=== PATIENT | female | born 1940 | race Caucasian/White ===

== ENCOUNTER → 2022-02-23 10:00 | Outpatient (BNVA) | payer MEDICARE, SELFPAY | PROVIDERS: Visit Provider Emergency Medicine | DX: I10 Essential (primary) hypertension (principal) | CPT/HCPCS: 80053; 85025 ==

== ENCOUNTER → 2022-10-10 09:43 | Outpatient (BNVA) | payer MEDICARE, SELFPAY | PROVIDERS: Visit Provider Family Medicine | DX: I10 Essential (primary) hypertension (principal) | CPT/HCPCS: 80053; 80061 ==

== ENCOUNTER → 2022-10-22 11:17 | Outpatient (BNVA) | payer MEDICARE, SELFPAY | PROVIDERS: Visit Provider Family Medicine | DX: I10 Essential (primary) hypertension (principal); Z13.220 Encounter for screening for lipoid disorders; Z13.6 Encounter for screening for cardiovascular disorders | CPT/HCPCS: 80053; 80061 ==

== ENCOUNTER → 2022-11-23 10:15 | Outpatient (BNVA) | payer MEDICARE, SELFPAY | PROVIDERS: Visit Provider Nurse Practitioner Family | DX: M25.519 Pain in unspecified shoulder (principal); M25.619 Stiffness of unspecified shoulder, not elsewhere classified; M19.012 Primary osteoarthritis, left shoulder | CPT/HCPCS: 73030 ==

== ENCOUNTER → 2023-11-28 14:19 | Outpatient (BNVA) | payer MEDICARE, SELFPAY | PROVIDERS: PCP Family Medicine; Visit Provider Physician Assistant | DX: M79.641 Pain in right hand (principal); R22.31 Localized swelling, mass and lump, right upper limb | CPT/HCPCS: 73130; 99204 ==

== ENCOUNTER 2024-01-08 06:42 | Day surgery (SDC) | payer MEDICARE, SELFPAY ==
[2024-01-08] VITALS (8 sets, daily range): BP systolic 117–162; BP diastolic 66–88; PULSE 46–54; RESP 16–18; TEMP 36.1–36.3; O2SAT 93–96
[2024-01-08] MEDS: sodium chloride 0.9% 1,000 ML 30 ML IV (07:16)
[2024-01-08] MEDS: acetaminophen 1,000 MG/100 ML PIGGYBACK 400 MG IV (07:18)
[2024-01-08] MEDS: ketorolac 30 mg/mL INJ IVP (07:18)
[2024-01-08] MEDS: scopolamine 1.5 Patch 1 PATCH TRANSDERMA (07:23)
--- NOTE | 2024-01-08 07:54 | W.PM.OPSFHP ---
Same Day Surgery H&P Indication for Procedure/HPI DATE OF PROCEDURE: January 08, 2024 CHIEF COMPLAINT/INDICATIONFOR SURGICAL PROCEDURE: Right ring finger cyst, right small finger cyst PREOP DIAGNOSIS: Right ring finger cyst, right small finger cyst PLANNED PROCEDURE: Operation Date: 01/08/24 08:25 Proposed Procedures p Right ring finger cyst excision and right small finger cyst excision(Right) - Kranthi Page DO Medications/Allergies* Home Medications Medication Instructions Recorded Confirmed Type omeprazole 20 mg tablet,delayed 20 mg PO DAILY 07/01/23 01/07/24 History release Allergies/Adverse Reactions Allergy/AdvReac Type Severity Reaction Status Date / Time No Known Allergies Allergy Verified 11/28/23 14:25 Current Medications: Generic Name Dose Route Start Last Admin Trade Name Freq PRN Reason Stop Dose Admin Sodium Chloride 1,000 mls @ 30 mls/hr 01/08/24 07:00 01/08/24 07:16 Sodium Chloride 0.9% IV 01/09/24 06:59 30 mls/hr .Q24H FAY Administration Pertinent History/Comorbid Conditions* Medical History (Updated 12/02/23 @ 11:33 by NAKIA Tolentino) DJD of left shoulder History of TIA (transient ischemic attack) 2020 HTN (hypertension) with goal to be determined Metoprolol DC due to symptomatic mild bradycardia Surgical History (Updated 04/10/22 @ 15:46 by Faye Torres MD) History of hysterectomy History of cholecystectomy Family History (Updated 04/10/22 @ 14:31 by Kadie Soria LPN) Hypertension Father Mother Sister Stroke Mother Sister Denies family history of Diabetes Clotting disorder Dementia Hyperlipidemia Chronic kidney disease (CKD) Bleeding disorder Cancer Thyroid disease Pertinent Exam Findings alert, oriented x 3, operative site marked and procedure specific exam findings Please refer to detailed orthopedic examination on 11/28/2023: Right hand?palpable soft and mildly tender and mobile fluid-filled cyst on little finger and ring finger around PIP joint. Pain with range of motion in fingers. Radial pulse 2+. Recommendations Surgery/Procedure today Other Plans: Plan to proceed to the OR today for right ring finger cyst excision and right little finger cyst excision. Patient understands and Zetts procedure risk benefits complication alternatives of surgery and through shared decision-making elects proceed with surgical intervention. All questions answered at this time. Coding Level of Care Code Acute Code for Chg Fwd
--- NOTE | 2024-01-08 08:14 | ANES.PREANE2 ---
Pre-Anesthetic Assessment Height/Weight: Height 1.65 m Weight 83.915 kg Temp Pulse Resp BP Pulse Ox O2 Del Method 97.1 F L 54 L 17 162/88 96 Room Air 01/08/24 07:02 01/08/24 07:02 01/08/24 07:02 01/08/24 07:02 01/08/24 07:02 01/08/24 07:02 Preop Diagnosis: Right ring finger cyst, right small finger cyst Operation Date: 01/08/24 08:25 Proposed Procedures p Right ring finger cyst excision and right small finger cyst excision(Right) - Kranthi Page DO Familial anesthetic complications: none Was Beta Johnnie taken within 24 hours: N/A Was Clonidine taken within 24 hours: N/A Last intake: Intake Last Liquid Date 01/07/24 Last Liquid Time 20:30 Last Solid Date 01/07/24 Last Solid Time 20:30 Social No alcohol and No tobacco Exam alert, oriented x 3, clear to auscultation bilaterally and regular rate & rhythm Airway Submandibular: within normal limits Cervical ROM: within normal limits Mallampati: Class II Dentition: full History/ROS No significant history except as noted and No significant complaints Pulmonary None reported CV/HEM Hypertension None reported Hepatic None reported GI Gastroesophageal Reflux Disease Metabolic None reported Musc/skel None reported Neuropsych Cerebrovascular Accident no deficit Anesthetic Plan ASA status: 2 Anesthesia: MAC Risk of > 500 ml blood loss (7ml/kg in children): No Medications/Allergies Home Medications Medication Instructions Recorded Confirmed Last Taken Type diclofenac sodium 1 % topical gel 4 g topical QID #100 grams 11/23/22 01/07/24 Unknown Rx (Voltaren Arthritis Pain) nystatin 100,000 unit/gram topical 1 applic topical BID #30 grams 05/13/23 01/07/24 01/07/24 Rx cream clopidogrel 75 mg tablet (Plavix) 75 mg PO DAILY 90 days #90 tabs 07/01/23 01/07/24 01/01/24 Rx omeprazole 20 mg tablet,delayed 20 mg PO DAILY 07/01/23 01/07/24 01/07/24 History release amlodipine 10 mg tablet 10 mg PO DAILY 90 days #90 tabs 09/24/23 01/07/24 Unknown Rx losartan 50 mg tablet 50 mg PO DAILY 90 days #90 tabs 09/24/23 01/07/2424 Rx Allergies Allergy/AdvReac Type Severity Reaction Status Date / Time No Known Allergies Allergy Verified 11/28/23 14:25 Current Medications Generic Name Dose Route Start Last Admin Trade Name Chelo PRN Reason Stop Dose Admin Sodium Chloride 1,000 mls @ 30 mls/hr 01/08/24 07:00 01/08/24 07:16 Sodium Chloride 0.9% IV 01/09/24 06:59 30 mls/hr .Q24H FAY Administration PFSH Anesthesia Medical History DJD of left shoulder History of TIA (transient ischemic attack) 2020 HTN (hypertension) with goal to be determined Metoprolol DC due to symptomatic mild bradycardia Surgical History History of hysterectomy History of cholecystectomy Family History Father Hypertension Mother Hypertension Stroke Sister Hypertension Stroke Denies family history of Diabetes Clotting disorder Dementia Hyperlipidemia Chronic kidney disease (CKD) Bleeding disorder Cancer Thyroid disease Female Reproductive History Para: 4 Spontaneous abortions: No Data Anesthesia Cardiac Studies: No Data to Display
[2024-01-08] MEDS: ceFAZolin 2,000 MG in sodium chloride 0.9% (plus) 50 ML 100 MG IV (08:22)
[2024-01-08] MEDS: lidocaine 2% INJ 20 mL INJECTION (08:46)
[2024-01-08] MEDS: ROPivacaine 0.5% SDV 30 mL 150 MG INJECTION (08:47)
--- NOTE | 2024-01-08 09:09 | P.BOP_ITS ---
Date of Procedure: 01/08/2024 Surgeon: Kranthi Page DO Greeting Card Maker(s): None Procedure(s) performed: Right ring finger PIP cyst excision and bony dorsal osteophyte ostectomy Right small finger PIP cyst excision and bony dorsal osteophyte ostectomy Findings of the procedure(s): Patient was found to have PIP cysts of the right ring and small finger with prominent dorsal osteophytes these were subsequently excised and osteophytes removed and smoothed out with a rasp without issues or complications. 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
--- NOTE | 2024-01-08 09:11 | PM.OP ---
Operative Report Date of procedure: January 08, 2024 Surgeon: Kranthi Page DO Procedure: Preoperative diagnosis: Right ring finger and right small finger PIP joint cysts as well as arthritis Post-op diagnosis: Same Procedure done: Right ring finger PIP cyst excision and bony dorsal osteophyte ostectomy Right small finger PIP cyst excision and bony dorsal osteophyte ostectomy Surgeon: Kranthi Page DO Estimated blood loss: 2 mL Tourniquet time 35 minutes IV fluids: 600 mL Complications: None Findings: See operative report narrative Condition: stable Disposition: same day Brief History: Patient presents to the outpatient setting with findings consistent with a right Ring?and small finger??cyst with arthritis and dorsal prominent osteophytes.? She has been worked up in the outpatient setting and is failed conservative treatment approach.? Patient has right Ring and small?finger?noticeable ?cyst?that appears to be associated with DIP arthritis with dorsal osteophyte prominence.? Patient's failed conservative treatment and? She wishes to proceed with surgical intervention.? We talked about the risk benefits complications and alternatives with surgical nonsurgical treatment options.? Understanding risk of surgery she agrees to proceed with a right Ring?and small finger PIP joint cyst excision and possible bony ostectomies.? All questions answered. Procedure: Patient was seen evaluated in the preoperative holding area.? Consent was reviewed and signed with patient.? Correct extremity was then marked.? Patient was then seen and evaluated by the anesthesia department once cleared for surgery patient was then taken back to the operative suite patient was placed in supine position and all bony prominences well-padded the patient was properly secured to the bed.? Armboard was applied to the right upper extremity. This point time the right upper extremity was then prepped and draped in standard orthopedic fashion.? A final timeout was performed.? Patient received appropriate preoperative antibiotics. Prior to proceeding with incision sites I then performed digital block of the right Ring?and small finger?under sterile aseptic technique Finger?turnicot was used over the right Ring?finger?to exsanguinate the digit. ? Right Ring?finger?was then identified as well as the?cyst?over the PIP joint on the midline aspect of the?finger.? I then subsequently made a curved incision over the right ring finger over the PIP joint sharp scalpel was made through skin only I then utilized Littler dissection scissors and dissected out patient's dorsal ganglion cyst. This was dissected through Littler dissection scissors to its entirety and subsequently excised the cyst at the stalk utilizing bipolar electrocautery burring this at the base and its communication to the PIP joint. This was sent for pathology. It was of note patient did have significant arthritic changes with prominent dorsal osteophytes that were tenting the extensor mechanism I mobilized the extensor mechanism and took this ulnarly and then subsequently utilized a rongeur to remove any dorsal osteophyte prominences with bony ostectomy as well as a rasp to smooth out the edges. Then thoroughly irrigation was then subsequently performed and then I utilized a simple Monocryl stitch to close the capsule deep. Thorough irrigation performed and then I proceeded with removal of the cyst to the right small finger. Finger turnicot removed to the right ring finger. Finger turnicot was placed to the right small finger. Right small?finger?was then identified as well as the?cyst?over the PIP joint on the midline aspect of the?finger.? I then subsequently made a curved incision over the right small finger over the PIP joint sharp scalpel was made through skin only I then utilized Littler dissection scissors and dissected out patient's dorsal ganglion cyst. This was dissected through Littler dissection scissors to its entirety and subsequently excised the cyst at the stalk utilizing bipolar electrocautery burring this at the base and its communication to the PIP joint. This was sent for pathology. It was of note patient did have significant arthritic changes with prominent dorsal osteophytes that were tenting the extensor mechanism I mobilized the extensor mechanism and took this ulnarly and then subsequently utilized a rongeur to remove any dorsal osteophyte prominences with bony ostectomy as well as a rasp to smooth out the edges. Then thoroughly irrigation was then subsequently performed and then I utilized a simple Monocryl stitch to close the capsule deep. Thorough irrigation performed to both digits. Next I then removed?finger?turnicot. Total of 35 minutes between both finger turnicot's. Wound bed was then thoroughly irrigated hemostasis was maintained with bipolar electrocautery.? Next I closed the incision with interrupted nylon suture.? Incision sites were then dressed with Xeroform 4 x 4's Kerlix Isak wrap and an Darci wrap.? Patient was then awakened from anesthesia and taken to PACU in stable condition. Disposition: Patient taken to PACU in stable condition recovering well.? Dressing on in place clean dry and intact.? Patient was receive appropriate discharge instruction as well as pain medication postoperatively.? Patient may be allowed weightbearing as tolerated to the right hand and encourage range of motion once dressing come down after 72 hours.? Patient to follow-up with me in the office in 2 weeks.? Patient understands and agrees with current plan.? All questions answered.
[2024-01-08] MEDS: TRAMadol 50 mg Tablet PO (10:05)
--- NOTE | 2024-01-08 10:25 | ANE.PACU2 ---
Inpatient post-anesthesia follow up: Airway intact: Yes Vital signs: Temperature 97.4 F Pulse Rate 52 Respiratory Rate 16 Blood Pressure 155/66 Pulse Oximetry 95 Oxygen Delivery Me thod Room Air Oxygen Flow Rate Fraction of Inspir ed Oxygen Hydration adequate: Yes Nausea and vomiting: No Pain level: 1 Mental status: Baseline
== END 2024-01-08 10:25 | disposition home or self-care (01) ==
PROVIDERS: PCP Family Medicine; Visit Provider Student in an Organized Health Care Education/Training Program
PROC: (CPT 26160; principal; 2024-01-08 08:25)
DX: M67.441 Ganglion, right hand (principal); M13.841 Other specified arthritis, right hand; Z86.73 Personal history of transient ischemic attack (TIA), and cerebral infarction without residual deficits; I10 Essential (primary) hypertension
CPT/HCPCS: 26160 ×2; 88304; J0131; J0690; J1885; J2704; J2795; J3010; J7030

== ENCOUNTER → 2024-01-27 08:49 | Outpatient (BNVA) | payer MEDICARE, SELFPAY | PROVIDERS: PCP Family Medicine; Visit Provider Physician Assistant | DX: Z98.890 Other specified postprocedural states (principal) | CPT/HCPCS: 99024 ==

== ENCOUNTER → 2024-04-02 10:48 | Outpatient (BNVA) | payer MEDICARE, SELFPAY | PROVIDERS: PCP Family Medicine; Visit Provider Family Medicine | DX: I10 Essential (primary) hypertension (principal); R53.83 Other fatigue | CPT/HCPCS: 80053; 80061; 84443; 85025 ==

== ENCOUNTER → 2024-04-15 10:04 | Outpatient (BNVA) | payer MEDICARE, SELFPAY | PROVIDERS: PCP Family Medicine; Visit Provider Physician Assistant | DX: Z98.890 Other specified postprocedural states (principal) | CPT/HCPCS: 99024 ==

== ENCOUNTER → 2024-09-24 10:59 | Outpatient (BNVA) | payer MEDICARE, SELFPAY | PROVIDERS: PCP Family Medicine; Visit Provider Family Medicine | DX: M79.661 Pain in right lower leg (principal) | CPT/HCPCS: 73590 ==

== ENCOUNTER → 2024-09-28 15:19 | Outpatient (BNVA) | payer MEDICARE, SELFPAY | PROVIDERS: PCP Family Medicine; Visit Provider Family Medicine | DX: J20.8 Acute bronchitis due to other specified organisms (principal); B96.89 Other specified bacterial agents as the cause of diseases classified elsewhere; M40.294 Other kyphosis, thoracic region | CPT/HCPCS: 71046 ==

== ENCOUNTER → 2024-10-21 14:33 | Outpatient (BNVA) | payer MEDICARE, SELFPAY | PROVIDERS: PCP Family Medicine; Visit Provider Family Medicine | DX: I10 Essential (primary) hypertension (principal) | CPT/HCPCS: 80053 ==

== ENCOUNTER → 2025-03-17 09:21 | Outpatient (BNVA) | payer MEDICARE, SELFPAY | PROVIDERS: PCP Family Medicine; Visit Provider Family Medicine | DX: I10 Essential (primary) hypertension (principal) | CPT/HCPCS: 80048 ==

== ENCOUNTER → 2025-04-12 09:21 | Outpatient (BNVA) | payer MEDICARE, SELFPAY | PROVIDERS: PCP Family Medicine; Visit Provider Nurse Practitioner | DX: I63.9 Cerebral infarction, unspecified (principal); I10 Essential (primary) hypertension | CPT/HCPCS: 85025; 85610 ==